=== PATIENT | male | born 1980 | race Two or more races ===

== ENCOUNTER 2017-07-21 19:50 | Emergency (ER) | payer MEDICAID ==
[~2017-07-21] VITALS: Ht 177.8 cm; Wt 90.7 kg
[2017-07-21] MEDS ORDERED: Cephalexin 500mg cap ORAL ONE (20:00)
[2017-07-21] MEDS ORDERED: Ketorolac 60mg Inj IM ONE (20:00)
[2017-07-21] MEDS ORDERED: IBUPROFEN600 MG ORAL (20:50)
[2017-07-21] MEDS ORDERED: CEPHALEXIN500 MG ORAL (20:50)
[2017-07-21 20:56] VITALS: BP 132/81
--- NOTE | 2017-07-21 21:09 | Emergency Room Report ---
History of Present Illness General Chief Complaint: Skin Rash/Abscess Source: Patient Present Illness HPI The patient is a 37-year-old male presenting for right foot pain. He states that he noticed redness and swelling to the right foot yesterday which has now worsened. He denies any known injury to the area. 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 Pain is an 8/10 dull ache it is worse with touch. He denies any radiating pain. He denies fever or chills. He denies any other symptoms including calf pain or swelling, numbness, tingling Allergies: Coded Allergies: No Known Allergies (Unverified , 07/21/17) Patient History Past Medical History: see triage record Pertinent Family History: none Reviewed Nursing Documentation: PMH: Agreed, PSxH: Agreed Nursing Documentation-PMH Past Medical History: No Stated History Review of Systems All Other Systems: negative except mentioned in HPI Physical Exam Vital Signs Date Time Temp Pulse Resp B/P (MAP) Pulse Ox O2 Delivery O2 Flow Rate FiO2 07/21/17 19:53 98.4 84 16 130/78 98 Room Air Sp02 EP Interpretation: reviewed, normal General Appearance: no apparent distress, alert, GCS 15, non-toxic Head: normocephalic, atraumatic Eyes: bilateral eye normal inspection, bilateral eye PERRL ENT: hearing grossly normal, normal pharynx, no angioedema, normal voice Musculoskeletal: back normal, gait/station normal, normal range of motion, no calf tenderness, inflammation - R ankle, swelling - R ankle, tender - R ankle Neurologic: alert, oriented x3, responsive, motor strength/tone normal, sensory intact, speech normal Psychiatric: judgement/insight normal, memory normal, mood/affect normal, no suicidal/homicidal ideation Skin: other - erythema to R ankle Medical Decision Making PA Attestation Dr. Christianson is my supervising physician. Patient management was discussed with my supervising physician Diagnostic Impression: Primary Impression: Cellulitis Qualified Codes: L03.115 - Cellulitis of right lower limb ER Course The patient is a 37-year-old male presenting for right foot pain. Ddx considered include but not limited to insect bite, contact dermatitis, eczema, cellulitis, abscess, sprain, gout PE: NAD. Afebrile Right ankle: There is edema and erythema primarily to the anterior and lateral aspects. Does not extend to the calf or toes. Tender to palpation. No fluctuance. There is a healing lesion to the skin at the anterior aspect. Calf is nontender. The patient will be treated for infection with a prescription for Keflex and Motrin. He is given ER precautions. He needs to followup with his primary doctor Last Vital Signs Date Time Temp Pulse Resp B/P (MAP) Pulse Ox O2 Delivery O2 Flow Rate FiO2 07/21/17 19:53 98.4 84 16 130/78 98 Room Air Status: improved Disposition: HOME, SELF-CARE Condition: Improved Scripts Ibuprofen* (MOTRIN*) 600 Mg Tablet 600 MG ORAL Q8H Y for For Pain, #30 TAB 0 Refills Prov: TERI JURADO 07/21/17 Cephalexin* (KEFLEX*) 500 Mg Capsule 500 MG ORAL EVERY 12 HOURS, #14 CAP 0 Refills Prov: TERI JURADO 07/21/17 Patient Instructions: Rash Additional Instructions: I discussed my findings with the patient. All questions and concerns have been answered. Treatment and medication compliance have been addressed. I advised the patient that they need to follow up with PMD in 3-5 days. Return to ED if symptoms worsen, new symptoms arise, or if needed for any reason. Patient verbalized understanding of discharge instructions. TERI JURADO Jul 21, 2017 21:09
== END 2017-07-21 20:57 | disposition home or self-care (01) ==
LOC: EMR 20:15
DX: L03.115 Cellulitis of right lower limb (principal)
CPT/HCPCS: 96372; 99284